=== PATIENT | female | born 1970 | race Caucasian/White ===

== ENCOUNTER 2022-12-25 17:43 | Emergency (ER) | payer MEDICAID, SELFPAY ==
[2022-12-25 17:46] VITALS: BP 101/61; PULSE 82; RESP 14; TEMP 36.4; O2SAT 98; BMI 28.5
--- NOTE | 2022-12-25 18:02 | EKG12_ITS ---
Test Reason : SYNCOPE Blood Pressure : / mmHG Vent. Rate : 080 BPM Atrial Rate : 080 BPM P-R Int : 150 ms QRS Dur : 088 ms QT Int : 384 ms P-R-T Axes : 054 064 043 degrees QTc Int : 442 ms Normal sinus rhythm Normal ECG Confirmed by MJ YATES ([id number]), editor house organ CARON OVALLE ([id number]) on 12/30/2022 9:37:25 AM Referred By: CARMEN/FLORIN Confirmed By:MJ YATES
--- NOTE | 2022-12-25 18:02 | EX.ED.DYSGE1 ---
HPI History of Present Illness Chief Complaint: Syncope Detail of Chief Complaint: Syncope Informant: patient Narrative Narrative: Patient presents to the emergency department via EMS after a syncopal episode. Patient states that she and her daughter and friends were out shopping and they stopped at a restaurant and had lunch and she drank 1 beer. On the way home from shopping while in the car she began feeling dizzy and sweaty and nauseated. The hydraulic lift driver pulled into a gas station and patient stated that she did not feel well and then apparently lost consciousness for short time. Patient states that she has had similar episodes in the past. She denies chest pain or palpitations or racing heart. She denies recent illness. Currently just feels a little sluggish. She denies headache. She has not had any recent illnesses. Prior similar symptoms: Yes PFSH PFSH Medical History no medical history Allergy/AdvReac Type Severity Reaction Status Date / Time clonazepam Allergy Anaphylaxis Verified 12/25/22 17:46 Surgical History no surgical history Social History Smoking Status: Current every day smoker tobacco type: cigarettes ROS ROS ED ROS Narrative Syncope Review of Systems ROS Unobtainable: other Constitutional Constitutional ED: Reports lethargy; Denies chills, fever(s), sweats or weight loss Eyes Eyes: Denies blurry vision, change in vision or diplopia ENT ENT ED: Denies rhinorrhea or sore throat Cardiovascular Cardiovascular: Denies chest pain, orthopnea or racing heartbeat Respiratory/Chest Respiratory/Chest: Denies cough, dyspnea, dyspnea on exertion, orthopnea or sputum Gastrointestinal Gastrointestinal: Reports nausea; Denies abdominal pain, diarrhea or vomiting Genitourinary Genitourinary ED: Denies dysuria, hematuria or urinary frequency Musculoskeletal Musculoskeletal: Denies arthralgias, back pain, myalgias or neck pain Integumentary Denies abscess, Abrasions or rash Neurologic Neurologic: Reports other Details: Dizziness ; Denies headache(s) or weakness Psychiatric Psychiatric: Denies anxiety, depression or suicidal thoughts Endocrine Endocrinology: Denies polydipsia, polyphagia or polyuria Hematologic/Lymphatic Hematologic/Lymphatic: Denies easy bleeding, easy bruising or lymphadenopathy Allergic/Immunologic Allergic/Immunologic ED: Denies mouth swelling, tongue swelling or urticaria EXAM Physical Exam Const Vital Signs: 12/25/22 17:46 12/25/22 17:43 12/25/22 19:36 Temperature 97.6 F L Temperature Source Temporal Pulse Rate 82 Pulse Rate [Lying] 69 Pulse Rate [Sitting (for 1 minute prior to obtaining)] 72 Pulse Rate [Standing (for 1 minute prior to obtaining)] 77 Respiratory Rate 14 Respiratory Pattern Normal Blood Pressure 101/61 Blood Pressure [Lying] 121/67 H Blood Pressure [Sitting (for 1 minute prior to obtaining)] 110/62 Blood Pressure [Standing (for 1 minute prior to obtaining)] 121/75 H Blood Pressure Mean 74 Blood Pressure Mean [Lying] 85 Blood Pressure Mean [Sitting (for 1 minute prior to obtaining)] 78 Blood Pressure Mean [Standing (for 1 minute prior to obtaining)] 90 Pulse Ox 98 Oxygen Delivery Method Room Air Positive well nourished and well developed General Appearance ED: well developed and NAD HEENT Reports TM's clear and moist mucous membranes normocephalic and atraumatic; Negative for trauma or tenderness Tympanic Membrane ED: Yes TM's clear Eyes PERRL and EOMs intact bilaterally General Eye ED: Negative for pale conjunctiva or scleral icterus Neck no lymphadenopathy, supple and no JVD General: Negative for tenderness Chest Wall inspection of chest normal and palpation of chest normal Chest: Negative for tenderness Resp normal respiratory effort and clear to auscultation bilaterally Effort and Inspection: Negative for respiratory distress or pain with movement Auscultation: Negative for rhonchi, wheezes or diminished lung sounds Cardio regular rate, regular rhythm, S1 normal heart sound, S2 normal heart sound and no murmurs Peripheral Pulses: pulses 2+ throughout GI normal to inspection, nondistended, normoactive bowel sounds, soft to palpation, non-tender, non-distended and no masses Back/Spine no CVA tenderness and no thoracic nor lumbar tenderness Extremity normal to inspection General Extremety ED: Negative for edema General Extremity: Negative for edema Neuro oriented x3, CN's II-XII intact bilaterally, no sensory deficits noted and gait normal Sensorium / Orientation: awake, alert, oriented to person, oriented to place and oriented to time Motor Exam: strength 5/5 throughout and strength abnormal Psych mental status grossly normal Skin no rashes or lesions noted and no wounds MDM MDM MDM Narrative Medical decision making narrative: Patient presents with a syncopal episode while seated in her car. In the differential would be vasovagal episode versus cardiac dysrhythmia versus seizure which I think is less likely as there was no seizure-like activity noted or witnessed. IV line established on arrival. EKG obtained showed a sinus rhythm with a rate of 80 bpm with no acute ST segment changes. CBC with differential count 11.4 with hemoglobin 14 and platelet count of 275. Chemistries unremarkable. Troponin was normal at 3. Urinalysis was normal orthostatic vital signs were get if. Patient received normal saline fluid bolus. She had a delta troponin that also was normal at 4. Patient feels well otherwise. I feel she can be safely discharged to home. Clinically I suspect she may have had a vasovagal episode. Patient advised to push fluids. Return to the ER palpitations, racing heart, chest pain, recurrent syncope, or condition should worsen anyway. 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 Lab Data Attestation: I reviewed the patient's lab results. Labs: Laboratory Results - last 24 hr 12/25/22 12/25/22 12/25/22 18:23 18:24 19:08 WBC 11.4 H RBC 4.39 Hgb 14.0 Hct 42.1 MCV 95.9 MCH 31.9 MCHC 33.3 RDW Std Deviation 44.8 H RDW Coeff of Soraya 12.7 Plt Count 275 MPV 10.5 Immature Gran % (Auto) 0.300 Neut % (Auto) 69.5 Lymph % (Auto) 21.0 Burt % (Auto) 7.0 Eos % (Auto) 1.7 Baso % (Auto) 0.5 Absolute Neuts (auto) 7.9 H Absolute Lymphs (auto) 2.40 Nucleated RBC % 0 Sodium 135 L Potassium 4.7 Chloride 110 H Carbon Dioxide 20.0 L Anion Gap 5 BUN 7 Creatinine 1.19 H Estim Creat Clear Calc 42.20 Est GFR (MDRD) Af Amer 62 Est GFR (MDRD) Non-Af 51 L BUN/Creatinine Ratio 5.9 L Glucose 123 H Calcium 8.6 Troponin I High Sens 3 Urine Color Yellow Urine Clarity Clear Urine pH 6.0 Ur Specific [place] 1.015 Urine Protein 15 H Urine Glucose (UA) Normal Urine Ketones Negative Urine Occult Blood 10 H Urine Nitrite Negative Urine Bilirubin Negative Urine Urobilinogen Normal Ur Leukocyte Esterase Negative Urine RBC 0 SEEN Urine WBC 0-5 SEEN Ur Squamous Epith Cells 0-5 SEEN Urine Bacteria 0 SEEN Urine Mucus 0 SEEN Ethyl Alcohol < 3.0 08/14/23 20:43 WBC RBC Hgb Hct MCV MCH MCHC RDW Std Deviation RDW Coeff of Soraya Plt Count MPV Immature Gran % (Auto) Neut % (Auto) Lymph % (Auto) Burt % (Auto) Eos % (Auto) Baso % (Auto) Absolute Neuts (auto) Absolute Lymphs (auto) Nucleated RBC % Sodium Potassium Chloride Carbon Dioxide Anion Gap BUN Creatinine Estim Creat Clear Calc Est GFR (MDRD) Af Amer Est GFR (MDRD) Non-Af BUN/Creatinine Ratio Glucose Calcium Troponin I High Sens 4 Urine Color Urine Clarity Urine pH Ur Specific [place] Urine Protein Urine Glucose (UA) Urine Ketones Urine Occult Blood Urine Nitrite Urine Bilirubin Urine Urobilinogen Ur Leukocyte Esterase Urine RBC Urine WBC Ur Squamous Epith Cells Urine Bacteria Urine Mucus Ethyl Alcohol EKG Initial EKG: Attestation: I personally reviewed and interpreted this EKG as follows: Comments: Sinus rhythm with ventricular rate of 80 bpm with no acute ST segment changes Discharge Plan Triage Chief Complaint: Syncope ED Provider: Kirby Carmona Dx/Rx/DC Orders Clinical Impression: Syncope Instructions: ED Fainting, Vagal Reaction, ED Fainting, Uncertain Cause Primary Care Provider: Care Physician,No Primary Referrals: U [Other] Becca Canseco MD [[facility] Staff - [facility]] - 3-5 Days Disposition Disposition: Home, Self Care Discharge Date/Time: 12/25/22 22:31
[2022-12-25] MEDS: 0.9% Normal Saline 1,000 ML 1000 ML IV (18:21)
[2022-12-25 18:40] LABS: Bacteria 0 SEEN /hpf (None Seen); Color, Urine Yellow (Yellow); Glucose, Dipstick Normal (Normal); Ketone-Dipstick Negative (Negative); Leukocyte Esterase-Dipstick Negative /ul (Negative); Mucous, Urine 0 SEEN /hpf (<or=2+); Nitrite-Dipstick Negative (Negative); Occult Blood-Urine 10 /ul (Negative); Protein-Dipstick 15 mg/dl (Negative); Red Blood Cells-Urine 0 SEEN /hpf (0-5); Specific Gravity, Urine 1.015 (1.002-1.030); Urine Bilirubin Dipstick Negative (Negative); Urine Clarity Clear (Clear); Urine Urobilinogen Normal (Normal)
[2022-12-25 18:50] LABS: Alcohol, Blood (Medical)-Serum < 3.0 mg/dL
[2022-12-25 18:54] LABS: Squamous Epithelial Cells - UA 0-5 SEEN /hpf (5-10); White Blood Cells 0-5 SEEN /hpf (0-5)
[2022-12-25 18:59] LABS: Anion Gap 5 (5-15); BUN 7 mg/dL (7-18); BUN/Creat Ratio 5.9 RATIO (10-20); Calcium,Total 8.6 mg/dL (8.5-10.1); Chloride 110 mmol/L (98-107); Creatinine, Serum 1.19 mg/dL (0.55-1.02); EST Glomerular Filtration Rate 51 mL/min (>60); Est Glom Filt Rate - Afr Amer 62 mL/min (>60); Glucose 123 mg/dL (74-106); Potassium 4.7 mmol/L (3.5-5.1); Sodium Level 135 mmol/L (136-145); Troponin-I HS 3 pg/mL (3.0-54.0)
[2022-12-25 19:15] LABS: Absolute Neutrophil Count 7.9 X10^3/uL (2.0-7.7); Basophil# 0.06 X10^3/uL; Basophil% 0.5 % (0-1); Eosinophils% 1.7 % (0-5); Hematocrit 42.1 % (37-47); Mean Corp Hgb Conc 33.3 g/dL (32-36); Mean Corpuscular Hgb 31.9 pg (27.0-32.0); Mean Corpuscular Volume 95.9 fL (81-99); Mean Platelet Vol. 10.5 fl (6.2-12.0); NRBC Flagged by Analyzer 0 % (0-5); Neutrophil # 7.94 X10^3/uL (2.7-7.7); Neutrophil % 69.5 % (47-70); Platelet Count 275 K/mm3 (150-450); RBC Distribution Width CV 12.7 % (11.6-14.6); RBC Distribution Width SD 44.8 fl (35.1-43.9); Red Blood Count 4.39 M/mm3 (4.2-5.4); White Blood Count 11.4 K/mm3 (4.4-11.0)
[2022-12-25 19:36] VITALS: BP 110/62; BP 121/67; BP 121/75; PULSE 69; PULSE 72; PULSE 77
[2022-12-25 21:13] LABS: Troponin-I HS 4 pg/mL (3.0-54.0)
[2022-12-25 22:29] VITALS: BP 120/74; PULSE 64; RESP 16; O2SAT 97
== END 2022-12-25 22:31 | disposition home or self-care (01) ==
PROVIDERS: Emergency Provider Emergency Medicine; Visit Provider Emergency Medicine
DX: R55 Syncope and collapse (principal); F17.210 Nicotine dependence, cigarettes, uncomplicated
CPT/HCPCS: 36415; 80048; 81001; 82077; 84484; 85025; 93005; 99285; A4216